=== PATIENT | female | born 1970 | race Caucasian/White ===

== ENCOUNTER 2016-11-06 08:05 | Emergency (ER) | payer OTHER ==
[~2016-11-06] VITALS: Ht 160 cm; Wt 74.4 kg
[2016-11-06] MEDS ORDERED: IV NORMAL SALINE 1000ML BAG 1,000 ML IV ONE (08:45)
[2016-11-06 09:08] LABS: CALCIUM 8.2 mg/dL (8.5-10.1); CREATININE 0.6 mg/dL (0.6-1.0); GFR 106.7; POTASSIUM 4.2 mmol/L (3.5-5.1)
[2016-11-06 09:11] LABS: BASO % 1 % (0-3); EOS % 1 % (0-3); HEMATOCRIT 39.7 % (36.0-47.0); HEMOGLOBIN 13.9 g/dL (12.0-15.5); LYMPH # 0.9 x10^3/uL (1.0-4.8); LYMPH % 19 % (24-48); MEAN CORPUSCULAR HEMOGLOBIN 29 pg (25-35); MEAN CORPUSCULAR HGB CONC 35 g/dL (31-37); MEAN CORPUSCULAR VOLUME 84 fL (79-100); MONO % 7 % (0-9); NEUT % 72 % (31-73); PLATELET COUNT 235 x10^3/uL (140-400); RED BLOOD COUNT 4.73 x10^6/uL (3.50-5.40); RED CELL DISTRIBUTION WIDTH 13.8 % (11.5-14.5); WHITE BLOOD COUNT 4.7 x10^3/uL (4.0-11.0)
[2016-11-06 09:14] LABS: ALBUMIN 3.4 g/dL (3.4-5.0); ALBUMIN/GLOBULIN RATIO 1.3 (1.0-1.7); TOTAL BILIRUBIN 0.3 mg/dL (0.2-1.0)
[2016-11-06 09:33] LABS: BILIRUBIN,URINE NEGATIVE (NEG); GLUCOSE,URINE NEGATIVE (NEG); NITRITE,URINE NEGATIVE (NEG); PROTEIN,URINE NEGATIVE (NEG-TRACE); UROBILINOGEN,URINE 0.2 mg/dL (0.2 mg/dL)
[2016-11-06 09:40] LABS: BARBITURATES NEG (NEG); BENZODIAZEPINES NEG (NEG); CANNABINOIDS NEG (NEG); COCAINE NEG (NEG); METHADONE NEG (NEG); OPIATES NEG (NEG); PHENCYCLIDINE NEG (NEG)
[2016-11-06 10:10] LABS: BACTERIA,URINE 0 /HPF (0-FEW); SQUAMOUS EPITHELIAL CELL,UR MOD /LPF
--- NOTE | 2016-11-06 10:16 | RAD ---
Head CT without contrast History:new onset seizure Technique: Noncontrast CT imaging was acquired of the head. RS Compliance Statement: One or more of the following individualized dose reduction techniques were utilized for this examination: 1. Automated exposure control 2. Adjustment of the mA and/or kV according to patient size 3. Use of iterative reconstruction technique Comparison: None Findings: Ventricles are not dilated, some asymmetry in size of lateral ventricles considered normal variant.There is no significant mass-effect, midline shift, or abnormal extra-axial fluid collection. There is no evidence of acute parenchymal or extraaxial hemorrhage. The visualized paranasal sinuses and mastoid air cells are aerated. No significant osseous abnormality is identified. Impression: There is no evidence of an acute intracranial abnormality.
[2016-11-06 10:30] VITALS: BP 120/79
--- NOTE | 2016-11-06 11:03 | PHYS DOC ---
Past Medical History Past Medical History: No Pertinent History Past Surgical History: Cholecystectomy Alcohol Use: Occasionally Drug Use: None Adult General Chief Complaint Chief Complaint: SEIZURE HPI HPI Patient is a 46 year old female who presents with seizure. Discharged prior to arrival, patient was in bed, had an arm cramp, then her witnessed generalized tonic-clonic seizure lasting about 30 seconds. She was unresponsive during that time, biting her tongue, remained in the bed. She was tired and confused for at least 5 minutes after this occurred. She denies bowel or bladder incontinence. Now feels tired and has a headache but otherwise back to baseline. She denies any previous history of seizure. Denies any recent medication changes, denies use of street drugs, does not drink heavily. She is from [facility]. Review of Systems Review of Systems Constitutional: Denies fever or chills Eyes: Denies change in visual acuity HENT: Denies nasal congestion or sore throat Respiratory: Denies cough or shortness of breath Cardiovascular: Denies chest pain or edema GI: Denies abdominal pain, nausea, vomiting, or diarrhea : Denies dysuria Musculoskeletal: Denies back pain or joint pain Integument: Denies rash or skin lesions Neurologic: Reports seizure. Denies headache, focal weakness or sensory changes Current Medications Current Medications Current Medications Medications (Trade) Dose Ordered Sig/Michael Start Time Stop Time Status Last Admin Dose Admin Acetaminophen (Tylenol) 500 mg 1X ONCE 11/06/16 11:15 11/06/16 11:16 DC 11/06/16 11:11 500 MG Sodium Chloride 1,000 ml @ 1,000 mls/hr 1X ONCE 11/06/16 08:45 11/06/16 09:44 DC 11/06/16 08:44 1,000 MLS/HR Allergies Allergies Allergies Coded Allergies Type Severity Reaction Last Updated Verified No Known Drug Allergies 11/06/16 No Physical Exam Physical Exam Constitutional: Well developed, well nourished, no acute distress, non-toxic appearance. HENT: Normocephalic, atraumatic, bilateral external ears normal, oropharynx moist, nose normal. Eyes: PERRLA, EOMI, conjunctiva normal, no discharge. Neck: supple, no stridor. No meningismus, no midline C-spine tenderness Cardiovascular: RRR, no murmurs, no edema. Lungs & Thorax: LCTAB, no wheezing, no respiratory distress. Abdomen: soft, nontender, nondistended. Skin: Warm, dry, no erythema, no rash. Back: No tenderness. Extremities: No tenderness, no edema. Neurologic: Alert and oriented X 3, cranial nerves II through XII grossly intact , symmetric strength and sensation upper and lower extremities, no focal deficits noted. Psychologic: Affect normal, judgement normal, mood normal. Current Patient Data Vital Signs Vital Signs Date Time Temp Pulse Resp B/P (MAP) Pulse Ox O2 Delivery O2 Flow Rate FiO2 11/06/16 10:30 70 16 120/79 (93) 100 Room Air 11/06/16 08:05 98.4 98.4 Lab Values Laboratory Tests Test 11/06/16 08:25 11/06/16 08:45 11/06/16 09:10 POC Urine HCG, Qualitative Hcg negative (Negative) White Blood Count 4.7 x10^3/uL (4.0-11.0) Red Blood Count 4.73 x10^6/uL (3.50-5.40) Hemoglobin 13.9 g/dL (12.0-15.5) Hematocrit 39.7 % (36.0-47.0) Mean Corpuscular Volume 84 fL (79-100) Mean Corpuscular Hemoglobin 29 pg (25-35) Mean Corpuscular Hemoglobin Concent 35 g/dL (31-37) Red Cell Distribution Width 13.8 % (11.5-14.5) Platelet Count 235 x10^3/uL (140-400) Neutrophils (%) (Auto) 72 % (31-73) Lymphocytes (%) (Auto) 19 % (24-48) L Monocytes (%) (Auto) 7 % (0-9) Eosinophils (%) (Auto) 1 % (0-3) Basophils (%) (Auto) 1 % (0-3) Neutrophils # (Auto) 3.4 x10^3uL (1.8-7.7) Lymphocytes # (Auto) 0.9 x10^3/uL (1.0-4.8) L Monocytes # (Auto) 0.3 x10^3/uL (0.0-1.1) Eosinophils # (Auto) 0.1 x10^3/uL (0.0-0.7) Basophils # (Auto) 0.0 x10^3/uL (0.0-0.2) Sodium Level 142 mmol/L (136-145) Potassium Level 4.2 mmol/L (3.5-5.1) Chloride Level 106 mmol/L (98-107) Carbon Dioxide Level 28 mmol/L (21-32) Anion Gap 8 (6-14) Blood Urea Nitrogen 12 mg/dL (7-20) Creatinine 0.6 mg/dL (0.6-1.0) Estimated GFR (Cockcroft-Gault) 106.7 BUN/Creatinine Ratio 20 (6-20) Glucose Level 109 mg/dL (70-99) H Calcium Level 8.2 mg/dL (8.5-10.1) L Total Bilirubin 0.3 mg/dL (0.2-1.0) Aspartate Amino Transferase (AST) 16 U/L (15-37) Alanine Aminotransferase (ALT) 19 U/L (14-59) Alkaline Phosphatase 34 U/L (46-116) L Total Protein 6.0 g/dL (6.4-8.2) L Albumin 3.4 g/dL (3.4-5.0) Albumin/Globulin Ratio 1.3 (1.0-1.7) Urine Collection Type Void Urine Color Yellow Urine Clarity Clear Urine pH 7.0 Urine Specific [place] 1.010 Urine Protein Negative mg/dL (NEG-TRACE) Urine Glucose (UA) Negative mg/dL (NEG) Urine Ketones (Stick) Negative mg/dL (NEG) Urine Blood Moderate (NEG) Urine Nitrite Negative (NEG) Urine Bilirubin Negative (NEG) Urine Urobilinogen Dipstick 0.2 mg/dL (0.2 mg/dL) Urine Leukocyte Esterase Negative (NEG) Urine RBC 1-2 /HPF (0-2) Urine WBC 1-4 /HPF (0-4) Urine Squamous Epithelial Cells Mod /LPF Urine Bacteria 0 /HPF (0-FEW) Urine Mucus Mod /LPF Urine Opiates Screen Neg (NEG) Urine Methadone Screen Neg (NEG) Urine Barbiturates Neg (NEG) Urine Phencyclidine Screen Neg (NEG) Urine Amphetamine/Methamphetamine Neg (NEG) Urine Benzodiazepines Screen Neg (NEG) Urine Cocaine Screen Neg (NEG) Urine Cannabinoids Screen Neg (NEG) Urine Ethyl Alcohol Neg (NEG) Laboratory Tests 11/06/16 08:45 Laboratory Tests 11/06/16 08:45 EKG EKG Interpreted by me: Normal sinus rhythm rate 78, no acute ST or T wave changes, normal intervals, no ectopy [] Radiology/Procedures Radiology/Procedures PROCEDURE: CT HEAD WO CONTRAST Head CT without contrast History:new onset seizure Technique: Noncontrast CT imaging was acquired of the head. RS Compliance Statement: One or more of the following individualized dose reduction techniques were utilized for this examination: 1. Automated exposure control 2. Adjustment of the mA and/or kV according to patient size 3. Use of iterative reconstruction technique Comparison: None Findings: Ventricles are not dilated, some asymmetry in size of lateral ventricles considered normal variant.There is no significant mass-effect, midline shift, or abnormal extra-axial fluid collection. There is no evidence of acute parenchymal or extraaxial hemorrhage. The visualized paranasal sinuses and mastoid air cells are aerated. No significant osseous abnormality is identified. Impression: There is no evidence of an acute intracranial abnormality. DICTATED and SIGNED BY: REGULO GALLARDO MD DATE: 11/06/16949[] Course & Med Decision Making Course & Med Decision Making Pertinent Labs and Imaging studies reviewed. (See chart for details) The patient presents after new onset of seizure. Neurologically intact, awake and alert. No further seizure activity here. Gave IV fluids. Labs and CT head as above. No focal findings identified. Recommend rest, hydration, no driving for at least 6 months, no swimming alone. Discussed with Dr. Sandhu, no recommendation for initiation of antiepileptic medication at this time. Follow- up with primary care and neurology within the next week upon return to her hometown. Return to the emergency department for recurrence of seizure particularly if lasting greater than 5 minutes, multiple seizure without lucid interval, injury sustained during seizure, any otherwise worsening condition. [] Dragon Disclaimer Dragon Disclaimer This electronic medical record was generated, in whole or in part, using a voice recognition dictation system. Departure Departure Impression: Primary Impression: New onset seizure Disposition: 01 HOME, SELF-CARE Condition: STABLE Referrals: UNKNOWN PCP NAME (PCP) Patient Instructions: Seizure, Adult, [id number] Additional Instructions: You were seen in the emergency department today for seizure. Tests here did not show a serious cause of the seizure. You may not drive a car. Follow up with your primary care doctor & with a neurologist within the next week. Come back for seizure lasting longer than 5 minutes, 2 seizures back to back without waking up, injury occurring because of seizure, otherwise worsening condition. CATALINA GODDARD MD Nov 06, 2016 11:03
[2016-11-06] MEDS ORDERED: ACETAMINOPHEN 500 MG TABLET PO ONE (11:15)
--- NOTE | 2016-11-06 11:20 | EKG ---
[facility] [address] [place] [address] Test Date: 2016-11-06 Test Time: 08:37:02 Pat Name: PIERO HAHN Department: Room: Gender: F Interior Painter: : 1970 Requested By: CATALINA GODDARD Order Number: [id number] Reading MD: Onofre Diaz Measurements Intervals [place] Rate: 78 P: 34 WV: 166 QRS: 9 QRSD: 82 T: 11 QT: 368 QTc: 423 Interpretive Statements SINUS RHYTHM Electronically Signed On 11-08-2016 11:51:00 CDT by Onofre Diaz
== END 2016-11-06 11:10 | disposition home or self-care (01) ==
LOC: ER 08:05
DX: R56.9 Unspecified convulsions (principal); Z90.49 Acquired absence of other specified parts of digestive tract
CPT/HCPCS: 36415; 70450; 80053; 80307; 81001; 81025; 85025; 93005; 96360; 99285; J7030; G0479